=== PATIENT | male | born 1965 | race Caucasian/White ===

== ENCOUNTER 2022-02-17 18:53 | Emergency (ER) | payer BC ==
[~2022-02-17 18:53] MED LIST: BRINTELLIX20 MG PO; BUSPAR 10MG10 MG PO; COZAAR100 MG PO; ELIQUIS 5 MG TAB5 MG PO; FORTAMET1000 MG PO; LIPITOR TAB 2020 MG PO; METOPROLOL SUCC50 MG PO; PROPRANOLOL HCL10 MG PO; RANITIDINE HCL150 M1 PO; TRESIBA100 UNIT/1 SQ
[2022-02-17 20:21] LABS: RED BLOOD COUNT 6.13 M/UL (4.20-5.50); WHITE BLOOD COUNT 10.5 K/UL (4.5-11.0)
[2022-02-17 20:49] LABS: BUN/CREATININE RATIO 21 (0-10)
== END 2022-02-17 23:33 | disposition home or self-care (01) ==
LOC: ER1 18:53
PROVIDERS: Physician Assistant
DX: F10.129 Alcohol abuse with intoxication, unspecified (principal); R19.7 Diarrhea, unspecified; Y90.6 Blood alcohol level of 120-199 mg/100 ml; I48.91 Unspecified atrial fibrillation; E11.9 Type 2 diabetes mellitus without complications; I51.9 Heart disease, unspecified; Z79.84 Long term (current) use of oral hypoglycemic drugs
CPT/HCPCS: 70450; 70496; 70498; 80053; 81001; 82550; 82553; 84484; 85025; 85610; 93005; 96374; 99284; G0480; J2405; J7030; Q9967